=== PATIENT | male | born 1960 | race Caucasian/White ===

== ENCOUNTER 2022-03-10 06:20 | Day surgery (SDC) | payer BC ==
[2022-03-01 14:51] VITALS: BP 116/61
[2022-03-01 15:53] LABS: MEAN CORP HGB 31.6 pg (26-34); PLATELET COUNT 223 10^3/uL (150-400); RED CELL DISTRIBUTION WIDTH 12.7 % (11.5-14.5)
[2022-03-01 16:03] LABS: CARBON DIOXIDE 21.3 mmol/L (20.0-32)
[2022-03-01 21:55] LABS: LYMPHOCYTE 15 % (25-36); SEGMENTED NEUTROPHILS 78 % (31-76)
[2022-03-01 21:56] LABS: EOSINOPHIL 1 % (1-4); MONOCYTE 6 % (3-9)
[2022-03-10] VITALS (7 sets, daily range): BP systolic 120–142; BP diastolic 65–80
[~2022-03-10] VITALS: Ht 170.2 cm; Wt 88.0 kg
[~2022-03-10 06:20] MED LIST: ASCO100T5 PO; ATOR40TA PO; CINN500C2 PO; CYAN500T6 PO; DAPA10TA PO; GARL200T PO; LACTATED RINGERS 1,000 ML IV SCH; LEVAQUIN 100 ML IV ONE; LIPA1CAP21 PO; LISI5TAB18 PO; METF10007 PO; MULT-419 PO; SEMA1PEN3 SQ
[2022-03-10] MEDS ORDERED: SODIUM CHLORIDE IRR BOTTLE IR ONE (07:09)
[2022-03-10] MEDS ORDERED: OFIRMEV 100 ML IV ONE (07:27)
[2022-03-10] MEDS ORDERED: ZOFRAN ONE (07:27)
[2022-03-10] MEDS ORDERED: SUBLIMAZE ONE (07:28)
[2022-03-10] MEDS ORDERED: DILAUDID ONE ×2 (07:28→08:54)
[2022-03-10] MEDS ORDERED: DECADRON ONE (07:28)
[2022-03-10] MEDS ORDERED: DIPRIVAN IV ONE (07:28)
[2022-03-10] MEDS ORDERED: XYLOCAINE 2% 5ML VIAL ONE (07:28)
[2022-03-10] MEDS ORDERED: TORADOL ONE (07:29)
[2022-03-10] MEDS ORDERED: TRANSDERM-SCOP TD ONE (07:32)
[2022-03-10] MEDS ORDERED: REGLAN ONE (07:32)
[2022-03-10] MEDS ORDERED: PEPCID IV ONE (07:34)
[2022-03-10] MEDS ORDERED: TRAM50TA PO (08:57)
[2022-03-10] MEDS ORDERED: CIPR500T86 PO (08:57)
[2022-03-10] MEDS ORDERED: LACTATED RINGERS 1,000 ML IV SCH (09:00)
[2022-03-10] MEDS: DILAUDID IV PRN ×2 (09:01→09:06)
--- NOTE | 2022-03-10 10:43 | OPH ---
DATE OF SURGERY: 03/10/2022 DICTATOR NAME: Nicholas Magdaleno MD PREOPERATIVE DIAGNOSIS: Left hydrocele. FINAL DIAGNOSIS: Left hydrocele. PROCEDURE: Left hydrocelectomy. DESCRIPTION OF PROCEDURE: The patient was brought to the operating room, was put in supine position on the operating room table. After the patient was given a satisfactory and adequate LMA general anesthesia, the scrotal region was then prepped and draped aseptically in the usual manner. First, a transverse incision was done on the left hemiscrotal area and then an incision was deepened up to the tunica. By blunt and sharp dissection, the hydrocele sac was easily noted and this was excised and lot of fluid was then drained. The left scrotal area was then laid out of the left hemiscrotal sac and the hydrocele sac was then excised flushed to the area of the left testicle and the edges were then fulgurated and a running suture of 2-0 chromic catgut was used for hemostasis. After that, the rest of the area was fulgurated. After adequate hemostasis, the left was put back in its normal anatomical position in the left hemiscrotal sac and the skin incision was then closed in 2 layers by the use of a 2-0 chromic catgut. Before the closure of the skin, a small Sinai drain was also placed in the area around the testicle and the Sinai drain was then anchored to the skin with the use of 2-0 chromic catgut. After that, the scrotal dressing was applied with a scrotal support. The patient was then awakened, was transferred to the recovery room in stable condition. Nicholas Magdaleno MD DR: [id number]/[email or web address] TID: [id number] RECEIPT: [id number]
== END 2022-03-10 10:00 | disposition home or self-care (01) ==
LOC: SDC 06:20
PROVIDERS: ATTEND Urology
DX: N43.2 Other hydrocele (principal); I10 Essential (primary) hypertension; F41.9 Anxiety disorder, unspecified; E11.9 Type 2 diabetes mellitus without complications; Z98.890 Other specified postprocedural states; Z90.89 Acquired absence of other organs; Z90.49 Acquired absence of other specified parts of digestive tract; Z79.84 Long term (current) use of oral hypoglycemic drugs; Z83.3 Family history of diabetes mellitus; Z82.49 Family history of ischemic heart disease and other diseases of the circulatory system; Z79.01 Long term (current) use of anticoagulants; Z79.899 Other long term (current) drug therapy
CPT/HCPCS: 85027; 85007; 36415; 80048; 85610; 85730; 55040; 88302; J1100; A4217; J1170 ×2; J0131; J3490 ×2; J1956; J2001; J2405; J1885; J3010; J2765; J7120